=== PATIENT | female | born 1960 | race Caucasian/White ===

== ENCOUNTER 2016-10-10 20:44 | Emergency (ER) | payer BC ==
[~2016-10-10] VITALS: Ht 167.6 cm; Wt 83.0 kg
[~2016-10-10 20:44] MED LIST: ABAC1TAB3 PO; ALBUAER3 INH; ATOR10TA15 PO; BENZ1CAP34 PO; GABA400C5 PO; LEVE750T11 PO; LISI10TA3 PO; MOBI15TA PO; NYST1000 SWISH-SWAL; OMEP20CA2 PO; VALA1TAB PO
[2016-10-10 20:46] VITALS: BP 126/61; PULSE 96; RESP 15; TEMP 97.8; O2SAT 95
[2016-10-11] MEDS ORDERED: CIPR-9 PO (08:11)
[2016-11-23] MEDS ORDERED: ATOR10TA15 PO (09:21)
[2016-11-23] MEDS ORDERED: LISI10TA3 PO (09:22)
[2016-11-30] MEDS ORDERED: OXYB5TAB10 PO (13:38)
[2017-03-12] MEDS ORDERED: LISI10TA3 PO (08:23)
[2017-03-12] MEDS ORDERED: ATOR10TA15 PO (08:23)
== END 2016-10-10 21:07 | disposition left against medical advice (07) ==
LOC: NED 20:44
DX: R68.89 Other general symptoms and signs (principal)
CPT/HCPCS: 99281

== ENCOUNTER 2016-10-11 07:43 | Emergency (ER) | payer BC ==
[~2016-10-11] VITALS: Ht 167.6 cm; Wt 83.0 kg
[2016-10-11 07:45] VITALS: BP 144/89; PULSE 86; RESP 15; TEMP 97.8; O2SAT 98
--- NOTE | 2016-10-11 08:10 | PD ---
HPI Chief Complaint: Edema Time Seen by Provider: 07:54 Travel History International Travel<30 days: No Contact w/Intl Traveler<30days: No Traveled to known affect area: No History of Present Illness HPI 55-year-old female states she's been having swelling getting progressively worse to her bilateral lower extremities over the past couple of weeks. She states she feels short of breath but she's been progressively having out over the past year. She denies any chest pain or other concurrent complaints. She states she follows regularly with her HIV and primary care physician and her HIV counts are good in the 600s that she's been regularly taking her medications. She states that she's never had heart failure that she knows of or had ultrasound of her heart in the past. She states no recent travel history. She denies modifying factors other than movement. Quality is swollen. Severity is to bilateral knees. PFSH Past Medical History Narrative Medical reviewed and modified Anemia: Yes Arthritis: Yes Asthma: No Anxiety: Yes Depression: Yes Heart Rhythm Problems: No High Cholesterol: Yes Congestive Heart Failure: No COPD: No Diabetes: No Diminished Hearing: No Diverticulitis: Yes GERD: Yes Genitourinary: No Hepatitis: Yes (B AND C) Hypertension: Yes Immune Disorder: Yes (HIV +) Kidney Stones: Yes Reproductive: No Respiratory: Yes (COPD) Integumentary: Yes (GENITAL HERPES) Immunizations Current: No Seizures: Yes Sleep Apnea: No Thyroid Disease: No ?: Not Menopausal: Yes : 8 Para: 3 Miscarriage: 1 : 4 Tubal Ligation: Yes Past Surgical History Appendectomy: Yes Cholecystectomy: Yes Eye Surgery: Yes (BILAT CATARACT) Hysterectomy: Yes Social History Alcohol Use: No (HX ETOH ABUSE) Tobacco Use: Yes (<PPD) Substance Use: No (HX OF) Allergies-Medications (Allergen,Severity, Reaction): Coded Allergies: Penicillin (Verified Allergy, Severe, HIVES, 10/11/16) Reported Meds & Prescriptions Reported Meds & Active Scripts Active Reported Cipro (Ciprofloxacin HCl) 500 Mg Tab 500 Mg PO BID Gabapentin 400 Mg Cap 1 Cap PO TID Benzonatate 200 Mg Cap 1 Cap PO Q8HR PRN Omeprazole 20 Mg Cap 1 Cap PO DAILY Proair Hfa 8.5 GM Inh (Albuterol Sulfate) 90 Mcg/Act Aer 2 Puff INH Q6H PRN 108 mcg/actuation Nystatin Liq 100,000 unit/ml Susp 5 Ml SWISH-SWAL DAILY Levetiracetam ER 24 HR (Levetiracetam) 750 Mg Jojo 1 Tab PO Q12HR Mobic (Meloxicam) 15 Mg Tab 15 Mg PO DAILY Atorvastatin (Atorvastatin Calcium) 10 Mg Tab 10 Mg PO DAILY Lisinopril 10 Mg Tab 10 Mg PO DAILY Triumeq (Rosaklhq-Usmitpicjsfv-Agqgmuuccl) 600-50-300 Mg Tab 1 Tab PO DAILY Hazardous agent; use appropriate precautions for handling & disposal. Review of Systems Except as stated in HPI: all other systems reviewed are Neg Physical Exam Narrative GENERAL: Well-nourished, well-developed patient. SKIN: Warm and dry. HEAD: Normocephalic and atraumatic. EYES: No injection or drainage. ENT: No nasal drainage noted. NECK: Supple, trachea midline. CARDIOVASCULAR: Regular rate and rhythm RESPIRATORY: Breath sounds equal bilaterally. No accessory muscle use. GASTROINTESTINAL: Abdomen soft, non-tender, nondistended. EXTREMITIES: Edema noted to bilateral lower extremities with a small amount greater in the right than the left that goes up to bilateral knees without overlying cellulitic findings, Dorsalis pedis pulse strong bilaterally, sensation grossly intact, motor grossly intact NEUROLOGICAL: Awake and alert. Motor and sensory grossly within normal limits. Normal speech. Data Data Last Documented VS Vital Signs Date Time Temp Pulse Resp B/P Pulse Ox O2 Delivery O2 Flow Rate FiO2 10/11/16 08:12 93 Room Air 10/11/16 08:03 20 10/11/16 07:45 97.8 86 144/89 Orders Complete Blood Count With Diff (10/11/16 08:03) Comprehensive Metabolic Panel (10/11/16 08:03) B-Type Natriuretic Peptide (10/11/16 08:03) Act Partial Throm Time (Ptt) (10/11/16 08:03) Prothrombin Time / Inr (Pt) (10/11/16 08:03) Magnesium (Mg) (10/11/16 08:03) Ckmb (Isoenzyme) Profile (10/11/16 08:03) Troponin I (10/11/16 08:03) Iv Access Insert/Monitor (10/11/16 08:03) Electrocardiogram (10/11/16 08:03) Ecg Monitoring (10/11/16 08:03) Oximetry (10/11/16 08:03) Chest, Single Ap (10/11/16 08:03) Sodium Chloride 0.9% Flush (Ns Flush) (10/11/16 08:15) Us Leg Venous Doppler Bilat (10/11/16 ) Labs Laboratory Tests Test 10/11/16 08:10 White Blood Count 5.4 TH/MM3 Red Blood Count 4.87 MIL/MM3 Hemoglobin 14.8 GM/DL Hematocrit 42.9 % Mean Corpuscular Volume 88.2 FL Mean Corpuscular Hemoglobin 30.5 PG Mean Corpuscular Hemoglobin 34.6 % Concent Red Cell Distribution Width 13.6 % Platelet Count 224 TH/MM3 Mean Platelet Volume 8.9 FL Neutrophils (%) (Auto) 59.3 % Lymphocytes (%) (Auto) 28.4 % Monocytes (%) (Auto) 9.7 % Eosinophils (%) (Auto) 2.0 % Basophils (%) (Auto) 0.6 % Neutrophils # (Auto) 3.2 TH/MM3 Lymphocytes # (Auto) 1.5 TH/MM3 Monocytes # (Auto) 0.5 TH/MM3 Eosinophils # (Auto) 0.1 TH/MM3 Basophils # (Auto) 0.0 TH/MM3 CBC Comment DIFF FINAL Differential Comment Prothrombin Time 10.8 SEC Prothromb Time International 1.0 RATIO Ratio Activated Partial 27.1 SEC Thromboplast Time Sodium Level 140 MEQ/L Potassium Level 3.7 MEQ/L Chloride Level 108 MEQ/L Carbon Dioxide Level 20.5 MEQ/L Anion Gap 12 MEQ/L Blood Urea Nitrogen 18 MG/DL Creatinine 0.88 MG/DL Estimat Glomerular Filtration 66 ML/MIN Rate Random Glucose 103 MG/DL Calcium Level 8.6 MG/DL Magnesium Level 2.3 MG/DL Total Bilirubin 0.4 MG/DL Aspartate Amino Transf 10 U/L (AST/SGOT) Alanine Aminotransferase 21 U/L (ALT/SGPT) Alkaline Phosphatase 112 U/L Total Creatine Kinase 98 U/L Troponin I LESS THAN 0.02 NG/ML B-Type Natriuretic Peptide 6 PG/ML Total Protein 7.5 GM/DL Albumin 3.9 GM/DL MDM Medical Decision Making Medical Screen Exam Complete: Yes Emergency Medical Condition: Yes Medical Record Reviewed: Yes (past history confirmed) Interpretation(s) CBC & BMP Diagram 10/11/16 08:10 Last 24 hours Impressions Chest X-Ray 10/11/16 0803 Signed Impressions: Service Date/Time: Tuesday, October 11, 2016 08:19 - CONCLUSION: Linear opacity at the left lung base representing either subsegmental atelectasis or scar. Otherwise, no acute cardiopulmonary abnormality is identified. Jamal Blackburn MD Lower Extremity Ultrasound 10/11/16 0000 Signed Impressions: Service Date/Time: Tuesday, October 11, 2016 08:28 - CONCLUSION: No DVT is identified within either lower extremity. Jamal Blackburn MD Differential Diagnosis DVT, CHF, renal failure, venous stasis Narrative Course Will check blood work, chest x-ray, ultrasound and reevaluate ed workup no acute, Patient denies any new complaints, all questions answered. Patient knows that follow up is incumbent on them and to return to the emergency room immediately if new or worsening symptoms develop. Patient given strict return precautions, vitals reviewed and are normal, agrees to further workup as an outpatient. Diagnosis Primary Impression: Leg edema Qualified Code: R60.0 - Bilateral edema of lower extremity Patient Instructions: General Instructions Additional Instructions: elevate legs at rest, follow with primary next 1-2 days, return as needed Med/Other Pt SpecificInfo: No Change to Meds Disposition: 01 DISCHARGE HOME Condition: Stable Maria Guadalupe Martinez MD Oct 11, 2016 08:10
[2016-10-11] MEDS ORDERED: CIPR-9 PO (08:11)
[2016-10-11 08:12] VITALS: O2SAT 93
[2016-10-11] MEDS ORDERED: SODIUM CHLORIDE 0.9% FLUSH 5 ML FLUSH IVF PRN (08:15)
[2016-10-11 08:28] LABS: AUTOMATED NEUTROPHIL # 3.2 TH/MM3 (1.8-7.7); BASOPHIL % 0.6 % (0.0-2.0); EOSINOPHIL # 0.1 TH/MM3 (0-0.4); HEMATOCRIT 42.9 % (35.0-46.0); HEMO FLAGS DIFF FINAL; LYMPH % 28.4 % (9.0-44.0); LYMPHOCYTE # 1.5 TH/MM3 (1.0-4.8); MEAN CELL VOLUME 88.2 FL (80.0-100.0); MEAN CORPUSCULAR HEMOGLOBIN 30.5 PG (27.0-34.0); MEAN CORPUSCULAR HGB CONC 34.6 % (32.0-36.0); MONO % 9.7 % (0.0-8.0); NEUT % 59.3 % (16.0-70.0); PLATELET COUNT 224 TH/MM3 (150-450); RED BLOOD COUNT 4.87 MIL/MM3 (4.00-5.30); RED CELL DISTRIBUTION WIDTH 13.6 % (11.6-17.2); WHITE BLOOD COUNT 5.4 TH/MM3 (4.0-11.0)
--- NOTE | 2016-10-11 08:28 | RADRPT ---
EXAM DATE/TIME: 10/11/2016 08:19 [facility] COMPARISON: CHEST SINGLE AP, May 02, 2016, 16:36. INDICATIONS : Shortness of breath and bilateral leg swelling. MEDICAL HISTORY : Hypertension. SURGICAL HISTORY : None. ENCOUNTER: Initial ACUITY: 3 weeks PAIN SCORE: 0/10 LOCATION: Bilateral chest FINDINGS: Portable AP view of the chest demonstrates a normal-sized cardiac silhouette. No effusion, consolidat ion, or pneumothorax is present. A linear opacity at the left lung base that was partially visualized previously. The bones and soft tissues demonstrate no acute finding. CONCLUSION: Linear opacity at the left lung base representing either subsegmental atelectasis or scar. Otherwise, no acute cardiopulmonary abnormality is identified. Jamal Blackburn MD on October 11, 2016 at 8:26 Board Certified Radiologist. This report was verified electronically.
[2016-10-11 08:37] LABS: APTT (PATIENT) 27.1 SEC (24.3-30.1); PROTHROMBIN TIME - PATIENT 10.8 SEC (9.8-11.6)
[2016-10-11 08:52] LABS: ANION GAP 12 MEQ/L (5-15); AST (GOT) 10 U/L (15-37); BICARBONATE 20.5 MEQ/L (21.0-32.0); BLOOD UREA NITROGEN 18 MG/DL (7-18); CHLORIDE 108 MEQ/L (98-107); GLOMERULAR FILTRATION RATE 66 ML/MIN (>89); MAGNESIUM 2.3 MG/DL (1.5-2.5); POTASSIUM 3.7 MEQ/L (3.5-5.1); SODIUM (NA) 140 MEQ/L (136-145)
[2016-10-11 08:56] LABS: ALKALINE PHOSPHATASE 112 U/L (45-117); ALT (GPT) 21 U/L (10-53); TOTAL BILIRUBIN ADULT 0.4 MG/DL (0.2-1.0)
[2016-10-11 09:14] LABS: CREATINE KINASE 98 U/L (26-192)
--- NOTE | 2016-10-11 09:31 | RADRPT ---
EXAM DATE/TIME: 10/11/2016 08:28 [facility] COMPARISON: US LEG BILATERAL VENOUS DOPPLER, June 22, 2012, 14:02. INDICATIONS : Swelling in bilateral lower extremities. MEDICAL HISTORY : Seizures. Hypercholesterolemia. Hypertension. Neuropathy, bilateral legs. GERD. Diverticulitis. Stage III renal disease. Hepatitis C & B. ETOH abuse. HIV. Genital herpes. SURGICAL HISTORY : Appendectomy.Tubal ligation. Hysterectomy.Bilateral cataract surgery. ENCOUNTER: Initial ACUITY: 3 weeks PAIN SCORE: 1/10 LOCATION: Bilateral legs. TECHNIQUE: Venous ultrasound of the left and right leg was performed from the inguinal ligament to the proximal calf. Real-time, color Doppler and spectral tracing, compression and augmentation techniques were us ed. FINDINGS: RIGHT LEG: There is normal compressibility of the deep venous system from the inguinal region to the proximal ca lf. No echogenic clot is seen in the lumen of the common femoral, femoral, popliteal, and posterior tibial veins. There is a normal response of the venous system to proximal and distal augmentation an d respiration. LEFT LEG: There is normal compressibility of the deep venous system from the inguinal region to the proximal ca lf. No echogenic clot is seen in the lumen of the common femoral, femoral, popliteal, and posterior tibial veins. There is a normal response of the venous system to proximal and distal augmentation an d respiration. CONCLUSION: No DVT is identified within either lower extremity. Jamal Blackburn MD on October 11, 2016 at 9:29 Board Certified Radiologist. This report was verified electronically.
[2016-10-11 10:07] VITALS: BP 112/60
--- NOTE | 2016-10-11 23:13 | EKG ---
Date Performed: 10/11/2016 Time Performed: 08:12:29 PTAGE: 55 years EKG: SINUS BRADYCARDIA POSSIBLE RIGHT VENTRICULAR CONDUCTION DELAY BORDERLINE ECG PREVIOUS TRACING : 04/10/2015 07.56 Compared to prior tracing no significant change DOCTOR: Mitul Vasquez Interpretating Date/Time 10/11/2016 23:11:34
[2016-11-23] MEDS ORDERED: ATOR10TA15 PO (09:21)
[2016-11-23] MEDS ORDERED: LISI10TA3 PO (09:22)
[2016-11-30] MEDS ORDERED: OXYB5TAB10 PO (13:38)
[2017-03-12] MEDS ORDERED: ATOR10TA15 PO (08:23)
[2017-03-12] MEDS ORDERED: LISI10TA3 PO (08:23)
== END 2016-10-11 10:20 | disposition home or self-care (01) ==
LOC: NEPC 07:43
DX: R60.0 Localized edema (principal); B20 Human immunodeficiency virus [HIV] disease; I10 Essential (primary) hypertension; F17.200 Nicotine dependence, unspecified, uncomplicated; Z79.899 Other long term (current) drug therapy
CPT/HCPCS: 71010; 80053; 82550; 83735; 83880; 84484; 85025; 85610; 85730; 93005; 93970

== ENCOUNTER 2016-11-12 12:12 | Emergency (ER) | payer BC ==
[~2016-11-12] VITALS: Ht 167.6 cm; Wt 85.0 kg
[~2016-11-12 12:12] MED LIST changes: -GABA400C5 PO; -VALA1TAB PO
[2016-11-12 12:13] VITALS: BP 123/78; PULSE 101; RESP 22; TEMP 98.2; O2SAT 98
[2016-11-12] MEDS ORDERED: DEXAMETHASONE SOD PHOS 4 MG/ML VIAL IM ONE (12:45)
[2016-11-12] MEDS ORDERED: CYCLOBENZAPRINE HCL 10 MG TAB PO ONE (12:45)
--- NOTE | 2016-11-12 12:45 | PD ---
HPI Chief Complaint: Back/ Neck Pain or Injury Time Seen by Provider: 12:42 Travel History International Travel<30 days: No Contact w/Intl Traveler<30days: No Traveled to known affect area: No History of Present Illness HPI Patient comes in complaining of low back pain that she awoke with this morning. Patient denies any fevers, trauma, numbness or tingling anywhere, loss change in bowel or bladder, or IV drug use. Patient has been using [id number] medication with minimal to no improvement in her symptoms. Pain is worse with certain movement. Pain is sharp stabbing like in nature without radiation. PFSH Past Medical History Anemia: Yes Arthritis: Yes Asthma: No Anxiety: Yes Depression: Yes Heart Rhythm Problems: No High Cholesterol: Yes Congestive Heart Failure: No COPD: No Diabetes: No Diminished Hearing: No Diverticulitis: Yes GERD: Yes Genitourinary: No Hepatitis: Yes (B AND C) Hypertension: Yes Immune Disorder: Yes (HIV +) Kidney Stones: Yes Reproductive: No Respiratory: Yes Integumentary: Yes (GENITAL HERPES) Immunizations Current: No Seizures: Yes Sleep Apnea: No Thyroid Disease: No ?: Not Menopausal: Yes : 8 Para: 3 Miscarriage: 1 : 4 Tubal Ligation: Yes Past Surgical History Appendectomy: Yes Cholecystectomy: Yes Eye Surgery: Yes (BILAT CATARACT) Hysterectomy: Yes Social History Alcohol Use: No (HX ETOH ABUSE) Tobacco Use: Yes (3-4 CIG/DAY) Substance Use: No (HX OF) Allergies-Medications (Allergen,Severity, Reaction): Coded Allergies: Penicillin (Verified Allergy, Severe, HIVES, 11/12/16) Reported Meds & Prescriptions Reported Meds & Active Scripts Active Ultram (Tramadol HCl) 50 Mg Tab 50 Mg PO Q8H PRN Medrol Dosepak (Methylprednisolone) 4 Mg Dspk 4 Mg PO DIRECTED Per Pharmacist direction Robaxin (Methocarbamol) 750 Mg Tab 750 Mg PO Q8HR PRN Reported Benzonatate 200 Mg Cap 1 Cap PO Q8HR PRN Omeprazole 20 Mg Cap 1 Cap PO DAILY Proair Hfa 8.5 GM Inh (Albuterol Sulfate) 90 Mcg/Act Aer 2 Puff INH Q6H PRN 108 mcg/actuation Nystatin Liq 100,000 unit/ml Susp 5 Ml SWISH-SWAL DAILY Levetiracetam ER 24 HR (Levetiracetam) 750 Mg Jojo 1 Tab PO Q12HR Mobic (Meloxicam) 15 Mg Tab 15 Mg PO DAILY Atorvastatin (Atorvastatin Calcium) 10 Mg Tab 10 Mg PO DAILY Lisinopril 10 Mg Tab 10 Mg PO DAILY Triumeq (Ogmgldwh-Syhaifnkdaek-Krmqhxaiwb) 600-50-300 Mg Tab 1 Tab PO DAILY Hazardous agent; use appropriate precautions for handling & disposal. Review of Systems Except as stated in HPI: all other systems reviewed are Neg Physical Exam Narrative GENERAL: Well-developed, overly nourished, in no acute distress, and non-ill appearing. SKIN: Warm and dry. HEAD: Atraumatic. Normocephalic. EYES: Pupils equal and round. EOMI. No scleral icterus. No injection or drainage. ENT: No nasal bleeding or discharge. Mucous membranes pink and moist. NECK: Trachea midline. Supple. No nuclear rigidity. CARDIOVASCULAR: No pedal edema. RESPIRATORY: No accessory muscle use. No respiratory distress. MUSCULOSKELETAL: No obvious deformities. No clubbing. No cyanosis. No edema. Full range of motion. No tenderness or crepitus or midline lumbar spine. Patient reports tenderness primarily in the right SI joint. Straight leg test positive on the right. Normal gait. NEUROLOGICAL: Awake and alert. No obvious cranial nerve deficits. Motor grossly within normal limits. Normal speech. PSYCHIATRIC: Appropriate mood and affect; insight and judgment normal. Data Data Last Documented VS Vital Signs Date Time Temp Pulse Resp B/P Pulse Ox O2 Delivery O2 Flow Rate FiO2 11/12/16 12:13 98.2 101 22 123/78 98 Orders Cyclobenzaprine (Flexeril) (11/12/16 12:45) Dexamethasone Inj (Decadron Inj) (11/12/16 12:45) MDM Medical Decision Making Medical Screen Exam Complete: Yes Emergency Medical Condition: Yes Differential Diagnosis Fracture, strain, sciatica, other Narrative Course The patient presented complaining of back pain. There was no history of recent fall or trauma. There was no evidence to support genitourinary etiology. There is also no evidence to suggest vascular pathology such as AAA dissection. No fevers or other evidence to suspect infectious processes, abscess, osteomyelitis etc. The patients neurological exam is normal with normal motor and sensory. There is no saddle paresthesias reported and no bowel or bladder incontinence or retention. I suspect the pain is mechanical in nature. Clinical suspicion, plan of care and management was discussed with the patient. The patient was instructed to follow up with their health care provider. The patient was also instructed to return if the pain worsened, changed, or developed weakness or bowel or bladder trouble. The patient agreed with plan. Patient in no obvious distress upon re-evaluation. Patient was asked if they wanted to speak to my attending, which the patient did not wish to do at this time. Any questions/concerns in reference to patient diagnosis/condition discussed and clarified prior to patient's discharge. Reinforced sheer importance of close follow up with patient's primary physician or primary care clinic. Instructed patient to return to ED immediately, if symptoms return/ worsen. Pt showed understanding of above instructions. Further instructions and recommendations were detailed in discharge paperwork. Pt ambulated without difficulty out of ED at discharge. Diagnosis Primary Impression: Low back pain Qualified Code: M54.5 - Right low back pain, unspecified chronicity, with sciatica presence unspecified Patient Instructions: Back Pain (ED), General Instructions Additional Instructions: Follow-up with your primary care physician in 3-5 days for evaluation. Take all medication as prescribed. Return to the emergency department if symptoms get worse. Med/Other Pt SpecificInfo: Prescription(s) given Scripts Tramadol (Ultram)50 Mg Tab50 Mg PO Q8H PRN (PAIN) #7 TAB Ref 0 Prov:Jazmin Keith MD 11/12/16 Methylprednisolone Dosepak (Medrol Dosepak)4 Mg Dspk4 Mg PO DIRECTED #1 DSPK Ref 0 Per Pharmacist direction Prov:Jazmin Keith MD 11/12/16 Methocarbamol (Robaxin)750 Mg Tgz440 Mg PO Q8HR PRN (MUSCLE PAIN) #12 TAB Ref 0 Prov:Jazmin Keith MD 11/12/16 Disposition: 01 DISCHARGE HOME Condition: Stable Julian Philip Nov 12, 2016 12:45
[2016-11-12] MEDS ORDERED: MEDR4PAK PO (12:46)
[2016-11-12] MEDS ORDERED: ULTR50TA5 PO (12:46)
[2016-11-12] MEDS ORDERED: ROBA750T PO (12:46)
[2016-11-23] MEDS ORDERED: ATOR10TA15 PO (09:21)
[2016-11-23] MEDS ORDERED: LISI10TA3 PO (09:22)
[2016-11-30] MEDS ORDERED: OXYB5TAB10 PO (13:38)
[2017-03-12] MEDS ORDERED: ATOR10TA15 PO (08:23)
[2017-03-12] MEDS ORDERED: LISI10TA3 PO (08:23)
[2017-03-18] MEDS ORDERED: OXYB5TAB10 PO (14:36)
== END 2016-11-12 13:25 | disposition home or self-care (01) ==
LOC: NEPB 12:12
DX: M54.5 Low back pain (principal); I10 Essential (primary) hypertension; E78.00 Pure hypercholesterolemia, unspecified; Z21 Asymptomatic human immunodeficiency virus [HIV] infection status; Z72.0 Tobacco use; Z86.2 Personal history of diseases of the blood and blood-forming organs and certain disorders involving the immune mechanism; Z87.39 Personal history of other diseases of the musculoskeletal system and connective tissue; Z86.59 Personal history of other mental and behavioral disorders; Z87.19 Personal history of other diseases of the digestive system; Z86.19 Personal history of other infectious and parasitic diseases; Z87.448 Personal history of other diseases of urinary system; Z87.09 Personal history of other diseases of the respiratory system; Z87.2 Personal history of diseases of the skin and subcutaneous tissue; Z86.69 Personal history of other diseases of the nervous system and sense organs
CPT/HCPCS: 96372; 99283; J1100

== ENCOUNTER 2016-12-04 14:57 | Emergency (ER) | payer BC ==
[~2016-12-04] VITALS: Ht 167.6 cm; Wt 80.0 kg
[~2016-12-04 14:57] MED LIST changes: -ABAC1TAB3 PO; +OXYB5TAB10 PO; +ROBA750T PO
[2016-12-04 15:00] VITALS: BP 145/80; PULSE 102; RESP 17; TEMP 97.9; O2SAT 98
--- NOTE | 2016-12-04 16:04 | PD ---
HPI Chief Complaint: Fall Time Seen by Provider: 16:04 Travel History International Travel<30 days: No Contact w/Intl Traveler<30days: No Traveled to known affect area: No History of Present Illness HPI 56-year-old female with a history of hypertension, hyperlipidemia, HIV on antiretroviral therapy, seizure disorder presents to the emergency department for evaluation of left ankle and foot pain status post fall that occurred yesterday. The patient states that she was walking in her backyard yesterday and is unsure exactly how she fell. States that she had a "fuzzy feeling" in her head that she sometimes gets before having a seizure and then the next thing she knew she was falling onto the ground and caught herself but did twist her left foot and ankle. Denies head trauma. The patient is complaining of pain in the lateral aspect of the left foot and ankle aggravated with movement and weightbearing. States that she thinks she had a small seizure yesterday. States she has not taken her Keppra in over a year because she has not been able to follow up with her neurologist. She denies any preceding symptoms of chest pain or shortness of breath. She denies any lightheadedness, dizziness, nausea, vomiting, vision changes, numbness or tingling, weakness. Denies any anticoagulation. No other complaints. PFSH Past Medical History Anemia: Yes Arthritis: Yes Asthma: No Anxiety: Yes Depression: Yes Heart Rhythm Problems: No High Cholesterol: Yes Congestive Heart Failure: No COPD: No Diabetes: No Diminished Hearing: No Diverticulitis: Yes GERD: Yes Genitourinary: No Hepatitis: Yes (B AND C) Hypertension: Yes Immune Disorder: Yes (HIV +) Kidney Stones: Yes Reproductive: No Respiratory: Yes Integumentary: Yes (GENITAL HERPES) Immunizations Current: No Seizures: Yes Sleep Apnea: No Thyroid Disease: No Tetanus Vaccination: < 5 Years Menopausal: Yes : 8 Para: 3 Miscarriage: 1 : 4 Tubal Ligation: Yes Past Surgical History Appendectomy: Yes Cholecystectomy: Yes Eye Surgery: Yes (BILAT CATARACT) Hysterectomy: Yes Other Surgery: Yes (appendicitis/gal bladder / cartaract/hysterectomty) Social History Alcohol Use: No (HX ETOH ABUSE) Tobacco Use: Yes (3-4 CIG/DAY) Substance Use: No (HX OF) Allergies-Medications (Allergen,Severity, Reaction): Coded Allergies: Penicillin (Verified Allergy, Severe, HIVES, 12/04/16) Reported Meds & Prescriptions Reported Meds & Active Scripts Active Ditropan (Oxybutynin Chloride) 5 Mg Tab 5 Mg PO Q12HR Lisinopril 10 Mg Tab 10 Mg PO DAILY Atorvastatin (Atorvastatin Calcium) 10 Mg Tab 10 Mg PO DAILY Robaxin (Methocarbamol) 750 Mg Tab 750 Mg PO Q8HR PRN Reported Benzonatate 200 Mg Cap 1 Cap PO Q8HR PRN Omeprazole 20 Mg Cap 1 Cap PO DAILY Proair Hfa 8.5 GM Inh (Albuterol Sulfate) 90 Mcg/Act Aer 2 Puff INH Q6H PRN 108 mcg/actuation Nystatin Liq 100,000 unit/ml Susp 5 Ml SWISH-SWAL DAILY Levetiracetam ER 24 HR (Levetiracetam) 750 Mg Jojo 1 Tab PO Q12HR Mobic (Meloxicam) 15 Mg Tab 15 Mg PO DAILY Review of Systems Except as stated in HPI: all other systems reviewed are Neg Physical Exam Narrative GENERAL: Well-nourished and well-developed pleasant patient in no acute distress who is nontoxic appearing. SKIN: Warm and dry. HEAD: Normocephalic and atraumatic. EYES: No injection, drainage, or hyphema noted. PERRLA. EOMI. ENT: No nasal drainage noted. Oropharynx is clear. NECK: Supple and the trachea is midline. CARDIOVASCULAR: Regular rate and rhythm. RESPIRATORY: Breath sounds are equal bilaterally with no accessory muscle use, wheezing, rhonchi, or crackles. GASTROINTESTINAL: Abdomen is soft, non-tender, and nondistended. MUSCULOSKELETAL: The left ankle and foot is tender over the lateral aspect but the skin is intact and there is no ligamentous instability. There is no deformity. The foot and toes are warm and well-perfused. Sensation to pain and light touch is intact. There is pitting edema to bilateral feet, per patient this is chronic. No obvious deformities, cyanosis, or ecchymosis is present throughout the upper and lower extremities. Patient has full range of motion without any signs of neurovascular compromise. Strength 5/5 upper and lower extremities equal bilaterally. NEUROLOGICAL: Awake, alert, and oriented. Normal speech and gait. Cranial nerves are grossly intact. Data Data Last Documented VS Vital Signs Date Time Temp Pulse Resp B/P Pulse Ox O2 Delivery O2 Flow Rate FiO2 12/04/16 17:12 16 94 Room Air 12/04/16 15:00 97.9 102 145/80 Orders Ankle, Complete ([id number]) (12/04/16 16:01) Foot, Complete ([id number]) (12/04/16 16:01) Electrocardiogram (12/04/16 16:01) Basic Metabolic Panel (Bmp) (12/04/16 16:01) Complete Blood Count With Diff (12/04/16 16:01) Troponin I (12/04/16 16:01) Ecg Monitoring (12/04/16 16:01) Iv Access Insert/Monitor (12/04/16 16:01) Oximetry (12/04/16 16:01) Splint Or Brace Apply/Monitor (12/04/16 17:01) Labs Laboratory Tests Test 12/04/16 16:50 White Blood Count 5.9 TH/MM3 Red Blood Count 5.05 MIL/MM3 Hemoglobin 15.4 GM/DL Hematocrit 45.2 % Mean Corpuscular Volume 89.5 FL Mean Corpuscular Hemoglobin 30.6 PG Mean Corpuscular Hemoglobin 34.2 % Concent Red Cell Distribution Width 13.4 % Platelet Count 232 TH/MM3 Mean Platelet Volume 8.8 FL Neutrophils (%) (Auto) 57.1 % Lymphocytes (%) (Auto) 28.9 % Monocytes (%) (Auto) 11.5 % Eosinophils (%) (Auto) 2.0 % Basophils (%) (Auto) 0.5 % Neutrophils # (Auto) 3.4 TH/MM3 Lymphocytes # (Auto) 1.7 TH/MM3 Monocytes # (Auto) 0.7 TH/MM3 Eosinophils # (Auto) 0.1 TH/MM3 Basophils # (Auto) 0.0 TH/MM3 CBC Comment DIFF FINAL Differential Comment Sodium Level 140 MEQ/L Potassium Level 3.9 MEQ/L Chloride Level 106 MEQ/L Carbon Dioxide Level 25.9 MEQ/L Anion Gap 8 MEQ/L Blood Urea Nitrogen 18 MG/DL Creatinine 1.08 MG/DL Estimat Glomerular Filtration 52 ML/MIN Rate Random Glucose 92 MG/DL Calcium Level 9.0 MG/DL Troponin I LESS THAN 0.02 NG/ML MDM Medical Decision Making Medical Screen Exam Complete: Yes Emergency Medical Condition: Yes Differential Diagnosis Left ankle sprain versus contusion versus fracture versus seizure versus syncope Narrative Course 56-year-old female presents to the emergency department for evaluation of fall yesterday injuring her left ankle and foot. Patient is afebrile. She is a little tachycardic with a heart rate of 102 bpm. Otherwise vital signs are within normal limits. Physical examination reveals some swelling and pain to the lateral aspect of the left foot and ankle. X-ray imaging has been ordered and is pending. She reports history of seizure disorder and has been off of her medication for about 1 year. Reporting that she think she had a seizure yesterday which is why she fell. We'll do basic blood work. EKG shows sinus rhythm with no acute ST elevations or depressions. X-ray of the left foot is negative for any acute abnormalities. X-ray of the left ankle is negative for any acute abnormalities. CBC is unremarkable. BMP is unremarkable. Patient remained stable and without complaint while here in the emergency department. Her left ankle is placed in an Jorge wrap. I did offer her crutches however she reports that she is able to ambulate on it and does not need crutches for ambulation. We'll discharge the patient with naproxen. She may have had a seizure causing her fall yesterday but she is not taking her seizure medication because she has not followed up with her neurologist in a while. Advised her to follow-up with her PCP and her neurologist. Patient verbalizes understanding and agreement with treatment plan. I discussed the case with my attending physician Dr. Keith who is aware of the patients history, physical examination findings, and treatment plan. Diagnosis Primary Impression: Left ankle sprain Qualified Code: S93.402A - Sprain of left ankle, unspecified ligament, initial encounter Additional Impression: Seizure disorder Referrals: Primary Care Physician Patient Instructions: Ankle Sprain (ED), General Instructions Additional Instructions: Jorge wrap. Elevate left ankle. Apply ice for 20 minutes on, 20 minutes off. Take medication as prescribed with food and a full glass of water. Follow-up with your Primary Care Physician. Return to the ED for any acute worsening of symptoms. Med/Other Pt SpecificInfo: Prescription(s) given Disposition: 01 DISCHARGE HOME Condition: Stable Sandra Mai Dec 04, 2016 16:04
--- NOTE | 2016-12-04 16:25 | RADRPT ---
EXAM DATE/TIME: 12/04/2016 16:15 [facility] COMPARISON: No previous studies available for comparison. INDICATIONS : Patient fell. MEDICAL HISTORY : None. SURGICAL HISTORY : None. ENCOUNTER: Initial ACUITY: 2 days PAIN SCORE: 7/10 LOCATION: Left lateral Ankle FINDINGS: Three view exam was performed of the left ankle. The bony structures are in normal alignment. No ev idence of fracture or dislocation. There is soft tissue swelling throughout the ankle., CONCLUSION: Soft tissue swelling. A bony injury is not seen. Jamal Lacey MD on December 04, 2016 at 16:22 Board Certified Radiologist. This report was verified electronically.
--- NOTE | 2016-12-04 16:25 | RADRPT ---
EXAM DATE/TIME: 12/04/2016 16:11 [facility] COMPARISON: No previous studies available for comparison. INDICATIONS : Patient fell MEDICAL HISTORY : None. SURGICAL HISTORY : None. ENCOUNTER: Initial ACUITY: 2 days PAIN SCORE: 7/10 LOCATION: Left lateral Foot FINDINGS: Three view examination of the left foot demonstrates no soft tissue swelling, dislocation, or fractur e. The tarsal bones appear intact. The interphalangeal and metatarsophalangeal joints are intact. The calcaneus is intact. Bony mineralization is normal. CONCLUSION: No acute disease. Jamal Lacey MD on December 04, 2016 at 16:23 Board Certified Radiologist. This report was verified electronically.
[2016-12-04 17:00] VITALS: BP 113/66; PULSE 78; RESP 16; O2SAT 97
[2016-12-04 17:04] LABS: AUTOMATED NEUTROPHIL # 3.4 TH/MM3 (1.8-7.7); BASOPHIL % 0.5 % (0.0-2.0); EOSINOPHIL # 0.1 TH/MM3 (0-0.4); HEMATOCRIT 45.2 % (35.0-46.0); HEMO FLAGS DIFF FINAL; LYMPH % 28.9 % (9.0-44.0); LYMPHOCYTE # 1.7 TH/MM3 (1.0-4.8); MEAN CELL VOLUME 89.5 FL (80.0-100.0); MEAN CORPUSCULAR HEMOGLOBIN 30.6 PG (27.0-34.0); MEAN CORPUSCULAR HGB CONC 34.2 % (32.0-36.0); MONO % 11.5 % (0.0-8.0); NEUT % 57.1 % (16.0-70.0); PLATELET COUNT 232 TH/MM3 (150-450); RED BLOOD COUNT 5.05 MIL/MM3 (4.00-5.30); RED CELL DISTRIBUTION WIDTH 13.4 % (11.6-17.2); WHITE BLOOD COUNT 5.9 TH/MM3 (4.0-11.0)
[2016-12-04 17:12] VITALS: RESP 16; O2SAT 94
[2016-12-04 17:33] LABS: ANION GAP 8 MEQ/L (5-15); BICARBONATE 25.9 MEQ/L (21.0-32.0); BLOOD UREA NITROGEN 18 MG/DL (7-18); CHLORIDE 106 MEQ/L (98-107); GLOMERULAR FILTRATION RATE 52 ML/MIN (>89); POTASSIUM 3.9 MEQ/L (3.5-5.1); SODIUM (NA) 140 MEQ/L (136-145)
[2016-12-04 18:12] VITALS: BP 109/57
--- NOTE | 2016-12-04 21:53 | EKG ---
Date Performed: 12/04/2016 Time Performed: 14:31:19 PTAGE: 56 years EKG: Sinus rhythm POSSIBLE LEFT ATRIAL ENLARGEMENT INDETERMINATE AXIS POSSIBLE RIGHT VENTRICULAR CONDUCTION DELAY POSS IBLE INFERIOR MYOCARDIAL INFARCTION BORDERLINE ECG NO SIGNIFICANT CHANGE FROM PRIOR ELECTROCARDIOGRAM . PREVIOUS TRACING : 10/11/2016 08.12 DOCTOR: Phil Lo Interpretating Date/Time 12/04/2016 21:51:56
[2017-03-12] MEDS ORDERED: ATOR10TA15 PO (08:23)
[2017-03-12] MEDS ORDERED: LISI10TA3 PO (08:23)
[2017-03-18] MEDS ORDERED: OXYB5TAB10 PO (14:36)
== END 2016-12-04 18:20 | disposition home or self-care (01) ==
LOC: NEPC 14:57
DX: S93.402A Sprain of unspecified ligament of left ankle, initial encounter (principal); G40.909 Epilepsy, unspecified, not intractable, without status epilepticus; D64.9 Anemia, unspecified; E78.00 Pure hypercholesterolemia, unspecified; I10 Essential (primary) hypertension; Z72.0 Tobacco use; F10.10 Alcohol abuse, uncomplicated; R94.31 Abnormal electrocardiogram [ECG] [EKG]; W01.0XXA Fall on same level from slipping, tripping and stumbling without subsequent striking against object, initial encounter; Y93.01 Activity, walking, marching and hiking; Y92.007 Garden or yard of unspecified non-institutional (private) residence as the place of occurrence of the external cause
CPT/HCPCS: 73610; 73630; 80048; 84484; 85025; 93005

== ENCOUNTER 2016-12-28 07:56 | Emergency (ER) | payer BC ==
[~2016-12-28] VITALS: Ht 167.6 cm; Wt 83.1 kg
[2016-12-28 07:59] VITALS: BP 152/82; PULSE 86; RESP 18; TEMP 97.7; O2SAT 98
[2016-12-28 08:12] VITALS: BP 123/77; PULSE 82; RESP 22; TEMP 97.8; O2SAT 98
--- NOTE | 2016-12-28 08:18 | PD ---
HPI Chief Complaint: Flank/Kidney Pain Time Seen by Provider: 08:07 Travel History International Travel<30 days: No Contact w/Intl Traveler<30days: No Traveled to known affect area: No History of Present Illness HPI 56-year-old female complains of low back pain. Patient states that the pain started several days ago. Patient states that the pain is aching pain and sharp pain localized to lower back area. Patient denies any pain radiation. Patient denies any recent injury. Patient denies any focal weakness and numbness of extremity. Patient denies any fever. Patient denies any dysuria or frequency. Patient denies any vaginal discharge or bleeding. Patient status post cholecystectomy, appendectomy, isthmectomy. PFSH Past Medical History Anemia: Yes Arthritis: Yes Asthma: No Anxiety: Yes Depression: Yes Heart Rhythm Problems: No High Cholesterol: Yes Congestive Heart Failure: No COPD: No Diabetes: No Diminished Hearing: No Diverticulitis: Yes GERD: Yes Genitourinary: No Hepatitis: Yes (B AND C) Hypertension: Yes Immune Disorder: Yes (HIV +) Kidney Stones: Yes Reproductive: No Respiratory: Yes Integumentary: Yes (GENITAL HERPES) Immunizations Current: No Seizures: Yes Sleep Apnea: No Thyroid Disease: No Menopausal: Yes : 8 Para: 3 Miscarriage: 1 : 4 Tubal Ligation: Yes Past Surgical History Appendectomy: Yes Cholecystectomy: Yes Eye Surgery: Yes (BILAT CATARACT) Hysterectomy: Yes Other Surgery: Yes (appendicitis/gal bladder / cartaract/hysterectomty) Social History Alcohol Use: No (HX ETOH ABUSE) Tobacco Use: Yes (3-4 CIG/DAY) Substance Use: No (HX OF) Allergies-Medications (Allergen,Severity, Reaction): Coded Allergies: Penicillin (Verified Allergy, Severe, HIVES, 12/04/16) Reported Meds & Prescriptions Reported Meds & Active Scripts Active Ditropan (Oxybutynin Chloride) 5 Mg Tab 5 Mg PO Q12HR Lisinopril 10 Mg Tab 10 Mg PO DAILY Atorvastatin (Atorvastatin Calcium) 10 Mg Tab 10 Mg PO DAILY Robaxin (Methocarbamol) 750 Mg Tab 750 Mg PO Q8HR PRN Reported Benzonatate 200 Mg Cap 1 Cap PO Q8HR PRN Omeprazole 20 Mg Cap 1 Cap PO DAILY Proair Hfa 8.5 GM Inh (Albuterol Sulfate) 90 Mcg/Act Aer 2 Puff INH Q6H PRN 108 mcg/actuation Nystatin Liq 100,000 unit/ml Susp 5 Ml SWISH-SWAL DAILY Levetiracetam ER 24 HR (Levetiracetam) 750 Mg Jojo 1 Tab PO Q12HR Mobic (Meloxicam) 15 Mg Tab 15 Mg PO DAILY Review of Systems General / Constitutional: No: Fever Eyes: No: Visual changes HENT: No: Headaches Cardiovascular: No: Chest Pain or Discomfort Respiratory: No: Shortness of Breath Gastrointestinal: No: Abdominal Pain Genitourinary: No: Dysuria Musculoskeletal: No: Pain Skin: No Rash Neurologic: No: Weakness Psychiatric: No: Depression Endocrine: No: Polydipsia Hematologic/Lymphatic: No: Easy Bruising Physical Exam Narrative GENERAL: Well-nourished, well-developed patient. SKIN: Focused skin assessment warm/dry. HEAD: Normocephalic. EYES: No scleral icterus. No injection or drainage. NECK: Supple, trachea midline. No JVD or lymphadenopathy. CARDIOVASCULAR: Regular rate and rhythm without murmurs, gallops, or rubs. RESPIRATORY: Breath sounds equal bilaterally. No accessory muscle use. GASTROINTESTINAL: Abdomen soft, non-tender, nondistended. MUSCULOSKELETAL: No cyanosis, or edema. BACK: Patient has moderate tenderness on palpation low back area, without obvious deformity. No CVA tenderness. Negative straight leg raising. Neurologic exam normal. Data Data Last Documented VS Vital Signs Date Time Temp Pulse Resp B/P Pulse Ox O2 Delivery O2 Flow Rate FiO2 12/28/16 08:28 82 12/28/16 08:12 97.8 22 123/77 98 Orders Urinalysis - C+S If Indicated (12/28/16 08:14) Spine, Lumbar - Ltd (Ap & Lat) (12/28/16 08:14) Labs Laboratory Tests Test 12/28/16 08:15 Urine Color YELLOW Urine Turbidity CLEAR Urine pH 6.5 Urine Specific [place] 1.015 Urine Protein NEG mg/dL Urine Glucose (UA) NEG mg/dL Urine Ketones NEG mg/dL Urine Occult Blood NEG Urine Nitrite NEG Urine Bilirubin NEG Urine Urobilinogen LESS THAN 2.0 MG/DL Urine Leukocyte Esterase NEG Urine RBC LESS THAN 1 /hpf Urine WBC LESS THAN 1 /hpf Urine Squamous Epithelial <1 /hpf Cells Urine Mucus FEW /lpf Microscopic Urinalysis Comment CULT NOT INDICATED MDM Medical Decision Making Medical Screen Exam Complete: Yes Emergency Medical Condition: Yes Interpretation(s) Last Impressions Lumbar Spine X-Ray 12/28/16 0814 Signed Impressions: Service Date/Time: Wednesday, December 28, 2016 08:33 - CONCLUSION: Mild degenerative changes. No acute bony findings Jamal Navarrete MD UA is negative. Differential Diagnosis Differential diagnosis including musculoskeletal, UTI, pyelonephritis, nephrolithiasis. Narrative Course 56-year-old female with low back pain. Toradol 60 mg IM. Norflex 60 mg IM. Diagnosis Primary Impression: Lumbar strain Qualified Code: S39.012A - Lumbar strain, initial encounter Patient Instructions: General Instructions Additional Instructions: Take medications as needed for pain. Follow-up with orthopedist and personal physician. Return if worse. Med/Other Pt SpecificInfo: Prescription(s) given Scripts Acetaminophen-Codeine (Tylenol-Codeine #3)300-30 mg Tab1-2 Tab PO Q6H PRN (PAIN ) #20 TAB Ref 0 Prov:Reji Mendez MD 12/28/16 Cyclobenzaprine (Flexeril)10 Mg Tab10 Mg PO TID #60 TAB Ref 0 Prov:Reji Mendez MD 12/28/16 Meloxicam (Mobic)15 Mg Tab15 Mg PO DAILY #20 TAB Prov:Reji Mendez MD 12/28/16 Disposition: 01 DISCHARGE HOME Condition: Stable Reji Mendez MD Dec 28, 2016 08:18
[2016-12-28 08:25] LABS: BLOOD, URINE NEG (NEG); COMMENT (UR) CULT NOT INDICATED; CULTURE IF INDICATED CULT NOT INDICATED; GLUCOSE,URINE NEG (NEG); KETONE, URINE NEG (NEG); MUCUS URINE FEW /lpf (OCC); NITRITE,URINE NEG (NEG); PH, URINE 6.5 (5.0-8.5); SQUAMOUS EPITHELIAL CELL URINE <1 /hpf (0-5); URINE COLOR YELLOW (YELLW/STRAW)
--- NOTE | 2016-12-28 08:54 | RADRPT ---
EXAM DATE/TIME: 12/28/2016 08:33 [facility] COMPARISON: CHEST SINGLE AP, October 11, 2016, 8:19. INDICATIONS : Lower back pain, no trauma. MEDICAL HISTORY : Hypertension. HIV. Smoker. SURGICAL HISTORY : Appendectomy. Hysterectomy. ENCOUNTER: Initial ACUITY: 3 days PAIN SCORE: 8/10 LOCATION: Bilateral lower back, radiates out FINDINGS: Alignment is normal. There is no evidence of fracture or destructive change. There's mild disc space narrowing most notably at lumbosacral junction. Tiny endplate osteophytes present at several levels. CONCLUSION: Mild degenerative changes. No acute bony findings Jamal Navarrete MD on December 28, 2016 at 8:50 Board Certified Radiologist. This report was verified electronically.
[2016-12-28] MEDS ORDERED: TYLETAB34 PO (09:38)
[2016-12-28] MEDS ORDERED: MOBI15TA PO (09:38)
[2016-12-28] MEDS ORDERED: CYCL1TAB29 PO (09:38)
[2016-12-28] MEDS ORDERED: ORPHENADRINE INJ 60 MG/2 ML AMP IM ONE (09:45)
[2016-12-28] MEDS ORDERED: KETOROLAC TROMETHAMINE 60 MG/2 ML (IM) VIAL IM ONE (09:45)
[2017-03-12] MEDS ORDERED: LISI10TA3 PO (08:23)
[2017-03-12] MEDS ORDERED: ATOR10TA15 PO (08:23)
[2017-03-18] MEDS ORDERED: OXYB5TAB10 PO (14:36)
== END 2016-12-28 10:47 | disposition home or self-care (01) ==
LOC: NEPC 07:56
DX: S39.012A Strain of muscle, fascia and tendon of lower back, initial encounter (principal); E78.00 Pure hypercholesterolemia, unspecified; I10 Essential (primary) hypertension; K21.9 Gastro-esophageal reflux disease without esophagitis; F17.210 Nicotine dependence, cigarettes, uncomplicated; Z21 Asymptomatic human immunodeficiency virus [HIV] infection status; Z87.442 Personal history of urinary calculi
CPT/HCPCS: 72100; 81001; 96372; 99283; J1885; J2360

== ENCOUNTER → 2017-01-06 | Outpatient (CLI) | payer BC ==
[~2017-01-06] MED LIST changes: +BALANCED SALT SOLN OPHT IRRIG 15 ML BTL ONE; +CYCL1TAB29 PO; +HYPROMELLOSE 0.3 % OPTH GEL 10 GM (0.34 FL OZ) TUBE ONE; +PHENYLEPHRINE HCL 2.5% OPTH SOLN 2 ML BTL ONE; +PRED20 PO; +PROPARACAINE HCL 0.5% OPHT SOLN 15 ML BTL ONE; +TROPICAMIDE 1% OPHT SOLN 15 ML BTL ONE; +TYLETAB34 PO
== END ==
LOC: PHSDC 08:39
PROVIDERS: ATTEND Ophthalmology
DX: H26.491 Other secondary cataract, right eye (principal)

== ENCOUNTER 2017-03-21 07:30 | Emergency (ER) | payer BC ==
[~2017-03-21] VITALS: Ht 167.6 cm; Wt 87.0 kg
[~2017-03-21 07:30] MED LIST changes: -BALANCED SALT SOLN OPHT IRRIG 15 ML BTL ONE; -HYPROMELLOSE 0.3 % OPTH GEL 10 GM (0.34 FL OZ) TUBE ONE; -PHENYLEPHRINE HCL 2.5% OPTH SOLN 2 ML BTL ONE; -PRED20 PO; -PROPARACAINE HCL 0.5% OPHT SOLN 15 ML BTL ONE; -TROPICAMIDE 1% OPHT SOLN 15 ML BTL ONE
[2017-03-21 07:31] VITALS: BP 136/78; PULSE 94; RESP 24; TEMP 98.3; O2SAT 95
--- NOTE | 2017-03-21 07:56 | PD ---
HPI Chief Complaint: Cold / Flu Symptoms Time Seen by Provider: 07:45 Travel History International Travel<30 days: No Contact w/Intl Traveler<30days: No Traveled to known affect area: No History of Present Illness HPI This is a 56-year-old female who has a history of HIV with a CD4 count of about 500 who presents to the emergency department with 1 month of nonproductive cough described as dry, constant, associated with some shortness of breath and difficulty speaking full sentences, with no fevers or chills. She does say she feels a little bit nauseous and has less appetite than normal. She has smoked about a half pack of cigarettes per day for about 30 years. She denies any sore throat or rhinorrhea. PFSH Past Medical History Anemia: Yes Arthritis: Yes Asthma: Yes Anxiety: Yes Depression: Yes Heart Rhythm Problems: No High Cholesterol: Yes Congestive Heart Failure: No COPD: No Diabetes: No Diminished Hearing: No Diverticulitis: Yes GERD: Yes Genitourinary: No Hepatitis: Yes (B AND C) Hypertension: Yes Immune Disorder: Yes (HIV +) Kidney Stones: Yes Reproductive: No Respiratory: Yes Integumentary: Yes (GENITAL HERPES) Immunizations Current: No Seizures: Yes Sleep Apnea: No Thyroid Disease: No Tetanus Vaccination: < 5 Years ?: Not Menopausal: Yes : 8 Para: 3 Miscarriage: 1 : 4 Tubal Ligation: Yes Past Surgical History Appendectomy: Yes Cholecystectomy: Yes Eye Surgery: Yes (BILAT CATARACT) Hysterectomy: Yes Other Surgery: Yes Social History Alcohol Use: No Tobacco Use: Yes (3-4 CIGARETTES A DAY) Substance Use: No Allergies-Medications (Allergen,Severity, Reaction): Coded Allergies: Penicillin (Verified Allergy, Severe, HIVES, 01/15/17) Reported Meds & Prescriptions Reported Meds & Active Scripts Active Ditropan (Oxybutynin Chloride) 5 Mg Tab 5 Mg PO Q12HR Atorvastatin (Atorvastatin Calcium) 10 Mg Tab 10 Mg PO DAILY Lisinopril 10 Mg Tab 10 Mg PO DAILY Tylenol-Codeine #3 (Acetaminophen-Codeine) 300-30 mg Tab 1-2 Tab PO Q6H PRN Flexeril (Cyclobenzaprine HCl) 10 Mg Tab 10 Mg PO TID Mobic (Meloxicam) 15 Mg Tab 15 Mg PO DAILY Robaxin (Methocarbamol) 750 Mg Tab 750 Mg PO Q8HR PRN Reported Benzonatate 200 Mg Cap 1 Cap PO Q8HR PRN Omeprazole 20 Mg Cap 1 Cap PO DAILY Proair Hfa 8.5 GM Inh (Albuterol Sulfate) 90 Mcg/Act Aer 2 Puff INH Q6H PRN 108 mcg/actuation Nystatin Liq 100,000 unit/ml Susp 5 Ml SWISH-SWAL DAILY Levetiracetam ER 24 HR (Levetiracetam) 750 Mg Jojo 1 Tab PO Q12HR Mobic (Meloxicam) 15 Mg Tab 15 Mg PO DAILY Review of Systems Except as stated in HPI: all other systems reviewed are Neg Physical Exam Narrative GENERAL:Well appearing, no acute distress SKIN: Focused skin assessment warm and dry. HEAD: Atraumatic. Normocephalic. EYES: Pupils equal and round. No injection or drainage. ENT: Moist mucous membranes NECK: Trachea midline. CARDIOVASCULAR: Regular rate and rhythm. No murmur appreciated. RESPIRATORY: Diffuse expiratory wheezing heard most with coughing, speaking full sentences GASTROINTESTINAL: Abdomen soft, non-tender, nondistended. MUSCULOSKELETAL: No obvious deformities. NEUROLOGICAL: Awake and alert. No obvious cranial nerve deficits. Moving all extremities. PSYCHIATRIC: Appropriate mood and affect; insight and judgment normal. Data Data Last Documented VS Vital Signs Date Time Temp Pulse Resp B/P Pulse Ox O2 Delivery O2 Flow Rate FiO2 03/21/17 07:57 94 Room Air 03/21/17 07:31 98.3 94 24 136/78 Orders Complete Blood Count With Diff (03/21/17 07:53) Basic Metabolic Panel (Bmp) (03/21/17 07:53) ^ Insert Iv (03/21/17 07:53) Methylprednisolone So Succ Inj (Solumedr (03/21/17 08:00) Ecg Monitoring (03/21/17 07:53) Iv Access Insert/Monitor (03/21/17 07:53) Oximetry (03/21/17 07:53) Oxygen Administration (03/21/17 07:53) Albuterol-Ipratropium Neb (Duoneb Neb) (03/21/17 08:00) Sodium Chloride 0.9% Flush (Ns Flush) (03/21/17 08:00) Chest, Pa & Lat (03/21/17 ) Labs Laboratory Tests Test 03/21/17 08:12 White Blood Count 4.2 TH/MM3 Red Blood Count 5.21 MIL/MM3 Hemoglobin 15.6 GM/DL Hematocrit 45.3 % Mean Corpuscular Volume 86.9 FL Mean Corpuscular Hemoglobin 29.9 PG Mean Corpuscular Hemoglobin 34.4 % Concent Red Cell Distribution Width 13.5 % Platelet Count 192 TH/MM3 Mean Platelet Volume 9.0 FL Neutrophils (%) (Auto) 57.1 % Lymphocytes (%) (Auto) 22.1 % Monocytes (%) (Auto) 19.2 % Eosinophils (%) (Auto) 0.8 % Basophils (%) (Auto) 0.8 % Neutrophils # (Auto) 2.4 TH/MM3 Lymphocytes # (Auto) 0.9 TH/MM3 Monocytes # (Auto) 0.8 TH/MM3 Eosinophils # (Auto) 0.0 TH/MM3 Basophils # (Auto) 0.0 TH/MM3 CBC Comment DIFF FINAL Differential Comment Sodium Level 136 MEQ/L Potassium Level 3.8 MEQ/L Chloride Level 106 MEQ/L Carbon Dioxide Level 22.7 MEQ/L Anion Gap 7 MEQ/L Blood Urea Nitrogen 16 MG/DL Creatinine 0.98 MG/DL Estimat Glomerular Filtration 58 ML/MIN Rate Random Glucose 113 MG/DL Calcium Level 8.6 MG/DL MDM Medical Decision Making Medical Screen Exam Complete: Yes Emergency Medical Condition: Yes Interpretation(s) Afebrile, mild tachycardia, no hypoxia No leukocytosis Electrolytes are reassuring Chest x-ray: No acute process Differential Diagnosis Bronchitis, COPD exacerbation, pneumonia, congestive heart failure Narrative Course This is a 56-year-old female who presents to the emergency department with nonproductive cough. She has a history of HIV and a long smoking history. She is diffusely wheezing on exam. I suspect she has undiagnosed COPD. She was placed on a monitor and an IV was established. She was given IV steroids. Labs are obtained which were reassuring. Chest x-ray demonstrates no infiltrate or pulmonary edema. Patient was improved after bronchodilator treatments. I think she can be discharged home Diagnosis Primary Impression: COPD exacerbation Patient Instructions: General Instructions Additional Instructions: If you develop severe shortness of breath, chest pain, or difficulty breathing return to the emergency department. Use albuterol every 4 hours for the next 2 days. Then use as needed for wheezing. Complete your course of steroids. Follow up with your primary care physician in 2-3 days if your symptoms have not improved. Med/Other Pt SpecificInfo: Prescription(s) given Scripts Albuterol 8.5 GM Inh (Proair Hfa 8.5 GM Inh)90 Mcg/Act Aer2 Puff INH Q4-6H PRN ( SHORTNESS OF BREATH) #1 INHALER 108 mcg/actuation Prov:Jazmin Keith MD 03/21/17 Prednisone 20 Mg Tab40 Mg PO DAILY 4 Days Prov:Jazmin Keith MD 03/21/17 Disposition: 01 DISCHARGE HOME Condition: Stable Jazmin Keith MD Mar 21, 2017 07:56
[2017-03-21 07:57] VITALS: O2SAT 94
[2017-03-21] MEDS: RESP: ALBUTEROL 2.5 MG/IPRATROPIUM 0.5 MG NEB (SCH) INH (07:59)
[2017-03-21] MEDS ORDERED: methylPREDNISolone SOD SUCC 125 MG/2 ML VIAL IV PUSH ONE (08:00)
[2017-03-21] MEDS ORDERED: SODIUM CHLORIDE 0.9% FLUSH 10 ML FLUSH IVF PRN (08:00)
--- NOTE | 2017-03-21 08:15 | RADRPT ---
EXAM DATE/TIME: 03/21/2017 08:02 [facility] COMPARISON: CHEST PA & LAT, December 03, 2013, 11:37. INDICATIONS : Cough and congestion for one month. MEDICAL HISTORY : Hypertension. Hepatitis C. HIV. Renal disease. SURGICAL HISTORY : None. ENCOUNTER: Initial ACUITY: 1 month PAIN SCORE: 0/10 LOCATION: Bilateral chest FINDINGS: There is linear scarring in the lingula again noted. The lungs are otherwise clear. Heart size upper limits normal. Osseous structures are intact. CONCLUSION: No acute disease. Adonis Harris MD on March 21, 2017 at 8:13 Board Certified Radiologist. This report was verified electronically.
[2017-03-21 08:25] LABS: AUTOMATED NEUTROPHIL # 2.4 TH/MM3 (1.8-7.7); BASOPHIL % 0.8 % (0.0-2.0); EOSINOPHIL % 0.8 % (0.0-4.0); HEMATOCRIT 45.3 % (35.0-46.0); HEMO FLAGS DIFF FINAL; LYMPH % 22.1 % (9.0-44.0); LYMPHOCYTE # 0.9 TH/MM3 (1.0-4.8); MEAN CELL VOLUME 86.9 FL (80.0-100.0); MEAN CORPUSCULAR HEMOGLOBIN 29.9 PG (27.0-34.0); MEAN CORPUSCULAR HGB CONC 34.4 % (32.0-36.0); MONO % 19.2 % (0.0-8.0); NEUT % 57.1 % (16.0-70.0); PLATELET COUNT 192 TH/MM3 (150-450); RED BLOOD COUNT 5.21 MIL/MM3 (4.00-5.30); RED CELL DISTRIBUTION WIDTH 13.5 % (11.6-17.2); WHITE BLOOD COUNT 4.2 TH/MM3 (4.0-11.0)
[2017-03-21 08:48] LABS: BICARBONATE 22.7 MEQ/L (21.0-32.0); POTASSIUM 3.8 MEQ/L (3.5-5.1)
[2017-03-21] MEDS ORDERED: PRED20 PO (08:57)
[2017-03-21] MEDS ORDERED: ALBUAER3 INH (08:57)
[2017-04-06] MEDS ORDERED: LISI10TA3 PO (08:27)
[2017-04-06] MEDS ORDERED: ATOR10TA15 PO (08:28)
== END 2017-03-21 09:26 | disposition home or self-care (01) ==
LOC: NEPE 07:30
DX: J44.1 Chronic obstructive pulmonary disease with (acute) exacerbation (principal); J45.909 Unspecified asthma, uncomplicated; F17.210 Nicotine dependence, cigarettes, uncomplicated; B20 Human immunodeficiency virus [HIV] disease; I10 Essential (primary) hypertension
CPT/HCPCS: 71020; 80048; 85025; 94640; 94664; 96374; 99285; J2930

== ENCOUNTER 2017-05-08 08:44 | Emergency (ER) | payer BC ==
[~2017-05-08] VITALS: Ht 167.6 cm; Wt 70.0 kg
[~2017-05-08 08:44] MED LIST changes: +PRED20 PO
[2017-05-08] MEDS ORDERED: ABAC1TAB3 PO (09:03)
[2017-05-08] MEDS ORDERED: ONDANSETRON HCL 4 MG/2 ML VIAL IVP ONE (09:15)
[2017-05-08] MEDS ORDERED: MORPHINE SULFATE 4 MG/ML INJ IV ONE (09:15)
[2017-05-08] MEDS ORDERED: SODIUM CHLORIDE 0.9% FLUSH 10 ML FLUSH IVF PRN (09:15)
--- NOTE | 2017-05-08 09:20 | PD ---
HPI Chief Complaint: Fall Time Seen by Provider: 09:09 Travel History International Travel<30 days: No Contact w/Intl Traveler<30days: No History of Present Illness HPI 56 y/o female presents after she fell this morning. She states she hit her head and doesn't think she blacked out but she's not sure. She is having most of her pain to her right lower ribs. Pain is worse with movement or deep breaths. She is also having pain to her left pinky toe area. She is not on any specific blood thinners. Quality pain is sharp. Severity is severe. She states the fall was after she slipped. She denies other modifying factors. PFSH Past Medical History Anemia: Yes Arthritis: Yes Asthma: Yes Anxiety: Yes Depression: Yes Heart Rhythm Problems: No High Cholesterol: Yes Congestive Heart Failure: No COPD: No Diabetes: No Diminished Hearing: No Diverticulitis: Yes GERD: Yes Genitourinary: No Hepatitis: Yes (B AND C) Hypertension: Yes Immune Disorder: Yes (HIV +) Kidney Stones: Yes Reproductive: No Respiratory: Yes Integumentary: Yes (GENITAL HERPES) Immunizations Current: No Seizures: Yes Sleep Apnea: No Thyroid Disease: No ?: Not Menopausal: Yes : 8 Para: 3 Miscarriage: 1 : 4 Tubal Ligation: Yes Past Surgical History Appendectomy: Yes Cholecystectomy: Yes Eye Surgery: Yes (BILAT CATARACT) Hysterectomy: Yes Other Surgery: Yes Social History Alcohol Use: No Tobacco Use: Yes Substance Use: No Allergies-Medications (Allergen,Severity, Reaction): Coded Allergies: penicillin G (Unverified Allergy, Severe, HIVES, 05/04/17) Reported Meds & Prescriptions Reported Meds & Active Scripts Active Lortab (Hydrocodone-Acetaminophen) 5-325 Mg Tab 1 Tab PO Q6H PRN Lisinopril 10 Mg Tab 10 Mg PO DAILY must be seen in office prior to next refill/annual fasting labs Atorvastatin (Atorvastatin Calcium) 10 Mg Tab 10 Mg PO DAILY Flexeril (Cyclobenzaprine HCl) 10 Mg Tab 10 Mg PO TID Reported Triumeq (Jolrelvv-Aigqgtxdrdjq-Vspvjkgwuo) 600-50-300 Mg Tab 1 Tab PO DAILY Hazardous agent; use appropriate precautions for handling & disposal. Benzonatate 200 Mg Cap 1 Cap PO Q8HR PRN Omeprazole 20 Mg Cap 1 Cap PO DAILY Proair Hfa 8.5 GM Inh (Albuterol Sulfate) 90 Mcg/Act Aer 2 Puff INH Q6H PRN 108 mcg/actuation Nystatin Liq 100,000 unit/ml Susp 5 Ml SWISH-SWAL DAILY Mobic (Meloxicam) 15 Mg Tab 15 Mg PO DAILY Review of Systems Except as stated in HPI: all other systems reviewed are Neg Physical Exam Narrative General: 56 y/o patient in no apparent distress Skin: Warm and dry Eyes: Pupils equal ENT: no septal hematoma NECK: no pain with palpation in midline, nexus criteria negative Cardiovascular: Regular rate and rhythm Respiratory: Normal respiratory effort noted, clear to auscultation bilaterally Abdomen: soft, tender right upper quadrant, nondistended Back: No step-offs, midline spine nontender with palpation Extremities: Pain with palpation of left fifth digit and lateral left foot, no lacerations over, neurovascularly intact, no pain with palpation of other joints Neuro: awake, alert, sensation and motor grossly intact Chest wall: Tender to right mid lower ribs Data Data Last Documented VS Vital Signs Date Time Temp Pulse Resp B/P Pulse Ox O2 Delivery O2 Flow Rate FiO2 05/08/17 09:01 Room Air Orders Complete Blood Count With Diff (05/08/17 09:10) Prothrombin Time / Inr (Pt) (05/08/17 09:10) Act Partial Throm Time (Ptt) (05/08/17 09:10) Chest, Single Ap (05/08/17 09:10) Ct Brain W/O Iv Contrast(Rout) (05/08/17 09:10) Ct Abd/Pel W Iv Contrast(Rout) (05/08/17 09:10) Iv Access Insert/Monitor (05/08/17 09:10) Ecg Monitoring (05/08/17 09:10) Oximetry (05/08/17 09:10) Morphine Inj (Morphine Inj) (05/08/17 09:15) Ondansetron Inj (Zofran Inj) (05/08/17 09:15) Sodium Chloride 0.9% Flush (Ns Flush) (05/08/17 09:15) Comprehensive Metabolic Panel (05/08/17 09:10) Foot, Complete ([id number]) (05/08/17 ) Iohexol 350 Inj (Omnipaque 350 Inj) (05/08/17 11:09) Resp Incentive Spirometry (05/08/17 ) Labs Laboratory Tests Test 05/08/17 09:20 White Blood Count 5.5 TH/MM3 Red Blood Count 4.91 MIL/MM3 Hemoglobin 14.8 GM/DL Hematocrit 43.6 % Mean Corpuscular Volume 88.7 FL Mean Corpuscular Hemoglobin 30.1 PG Mean Corpuscular Hemoglobin 33.9 % Concent Red Cell Distribution Width 15.1 % Platelet Count 248 TH/MM3 Mean Platelet Volume 8.4 FL Neutrophils (%) (Auto) 52.5 % Lymphocytes (%) (Auto) 33.4 % Monocytes (%) (Auto) 12.0 % Eosinophils (%) (Auto) 1.7 % Basophils (%) (Auto) 0.4 % Neutrophils # (Auto) 2.9 TH/MM3 Lymphocytes # (Auto) 1.8 TH/MM3 Monocytes # (Auto) 0.7 TH/MM3 Eosinophils # (Auto) 0.1 TH/MM3 Basophils # (Auto) 0.0 TH/MM3 CBC Comment DIFF FINAL Differential Comment Prothrombin Time 11.2 SEC Prothromb Time International 1.0 RATIO Ratio Activated Partial 26.5 SEC Thromboplast Time Sodium Level 137 MEQ/L Potassium Level 3.7 MEQ/L Chloride Level 107 MEQ/L Carbon Dioxide Level 21.6 MEQ/L Anion Gap 8 MEQ/L Blood Urea Nitrogen 16 MG/DL Creatinine 0.90 MG/DL Estimat Glomerular Filtration 65 ML/MIN Rate Random Glucose 102 MG/DL Calcium Level 9.0 MG/DL Total Bilirubin 0.5 MG/DL Aspartate Amino Transf 13 U/L (AST/SGOT) Alanine Aminotransferase 21 U/L (ALT/SGPT) Alkaline Phosphatase 105 U/L Total Protein 7.6 GM/DL Albumin 4.1 GM/DL MDM Medical Decision Making Medical Screen Exam Complete: Yes Emergency Medical Condition: Yes Medical Record Reviewed: Yes (past history confirmed) Interpretation(s) CBC & BMP Diagram 05/08/17 09:20 Last [address] 05/08/17 0910 Signed Impressions: Service Date/Time: Monday, May 08, 2017 10:57 - CONCLUSION: No acute intracranial abnormality. Kilo Pritchard MD Chest X-Ray 05/08/17 0910 Signed Impressions: Service Date/Time: Monday, May 08, 2017 09:21 - CONCLUSION: Left basilar scarring. Kilo Pritchard MD Abdomen/Pelvis CT 05/08/17 0910 Signed Impressions: Service Date/Time: Monday, May 08, 2017 11:01 - CONCLUSION: 1. Diverticulosis without diverticulitis. 2. No abdominal visceral injury. Kilo Pritchard MD Foot X-Ray 05/08/17 0000 Signed Impressions: Service Date/Time: Monday, May 08, 2017 09:22 - CONCLUSION: Soft tissue swelling without fracture. Kilo Pritchard MD Discussed with radiologist and area that I am seeing is possibly a nondisplaced small right seventh rib fracture-given clinical exam Will treat as if fracture with incentive spirometry and pain control Differential Diagnosis Fracture, pneumothorax, liver laceration, strain Narrative Course Will check blood work and trauma imaging and dose with morphine and reevaluate Patient updated, Patient denies any new complaints and states that they are feeling better. Patient happy with care, all questions answered. Patient knows that follow up is incumbent on them and to return to the emergency room immediately if new or worsening symptoms develop. Patient given strict return precautions, vitals reviewed and are normal, agrees to further workup as an outpatient. Diagnosis Primary Impression: Right rib fracture Qualified Code: S22.31XA - Closed fracture of one rib of right side, initial encounter Patient Instructions: General Instructions Additional Instructions: Follow with primary Wednesday, return as needed, use incentive spirometer every hour while awake, take pain medication as needed for pain but do not take while driving Med/Other Pt SpecificInfo: Prescription(s) given Scripts Hydrocodone-Acetaminophen (Lortab)5-325 Mg Tab1 Tab PO Q6H PRN (PAIN) #15 TAB Prov:Maria Guadalupe Martinez MD 05/08/17 Disposition: 01 DISCHARGE HOME Condition: Stable Maria Guadalupe Martinez MD May 08, 2017 09:20
--- NOTE | 2017-05-08 09:33 | RADRPT ---
EXAM DATE/TIME: 05/08/2017 09:22 [facility] COMPARISON: No previous studies available for comparison. INDICATIONS : Left foot pain after fall yesterday. MEDICAL HISTORY : None. SURGICAL HISTORY : None. ENCOUNTER: Initial ACUITY: 2 days PAIN SCORE: 5/10 LOCATION: Left foot. FINDINGS: Three view examination of the left foot demonstrates soft tissue swelling laterally adjacent to the f ifth digit. No fracture. The tarsal bones appear intact. The interphalangeal and metatarsophalange al joints are intact. The calcaneus is intact. Bony mineralization is normal. CONCLUSION: Soft tissue swelling without fracture. Kilo Pritchard MD on May 08, 2017 at 9:31 Board Certified Radiologist. This report was verified electronically.
--- NOTE | 2017-05-08 09:33 | RADRPT ---
EXAM DATE/TIME: 05/08/2017 09:21 [facility] COMPARISON: CHEST SINGLE AP, October 11, 2016, 8:19. INDICATIONS : Right sided rib pain after fall yesterday. Pain right under right breast. MEDICAL HISTORY : Venous insufficiency. Hypertension. Hepatitis C. HIV. Renal disease. SURGICAL HISTORY : None. ENCOUNTER: Initial ACUITY: 2 days PAIN SCORE: 10/10 LOCATION: Bilateral chest FINDINGS: A single view of the chest demonstrates minimal left basilar scarring. Right lung clear. Heart normal in size The cardiomediastinal contours are unremarkable. Osseous structures are intact. No pneumoth orax. CONCLUSION: Left basilar scarring. Kilo Pritchard MD on May 08, 2017 at 9:30 Board Certified Radiologist. This report was verified electronically.
[2017-05-08 09:47] LABS: AUTOMATED NEUTROPHIL # 2.9 TH/MM3 (1.8-7.7); BASOPHIL % 0.4 % (0.0-2.0); EOSINOPHIL # 0.1 TH/MM3 (0-0.4); EOSINOPHIL % 1.7 % (0.0-4.0); HEMATOCRIT 43.6 % (35.0-46.0); HEMO FLAGS DIFF FINAL; LYMPH % 33.4 % (9.0-44.0); LYMPHOCYTE # 1.8 TH/MM3 (1.0-4.8); MEAN CELL VOLUME 88.7 FL (80.0-100.0); MEAN CORPUSCULAR HEMOGLOBIN 30.1 PG (27.0-34.0); MEAN CORPUSCULAR HGB CONC 33.9 % (32.0-36.0); NEUT % 52.5 % (16.0-70.0); PLATELET COUNT 248 TH/MM3 (150-450); RED BLOOD COUNT 4.91 MIL/MM3 (4.00-5.30); RED CELL DISTRIBUTION WIDTH 15.1 % (11.6-17.2); WHITE BLOOD COUNT 5.5 TH/MM3 (4.0-11.0)
[2017-05-08 09:54] LABS: APTT (PATIENT) 26.5 SEC (24.3-30.1); PROTHROMBIN TIME - PATIENT 11.2 SEC (9.8-11.6)
[2017-05-08 10:02] LABS: ALT (GPT) 21 U/L (10-53); ANION GAP 8 MEQ/L (5-15); AST (GOT) 13 U/L (15-37); BICARBONATE 21.6 MEQ/L (21.0-32.0); CHLORIDE 107 MEQ/L (98-107); GLOMERULAR FILTRATION RATE 65 ML/MIN (>89); POTASSIUM 3.7 MEQ/L (3.5-5.1); SODIUM (NA) 137 MEQ/L (136-145)
[2017-05-08 10:05] LABS: ALKALINE PHOSPHATASE 105 U/L (45-117); BLOOD UREA NITROGEN 16 MG/DL (7-18); TOTAL BILIRUBIN ADULT 0.5 MG/DL (0.2-1.0)
[2017-05-08] MEDS ORDERED: IOHEXOL 350 MG/ML 10 ML VIAL (for RAD DIAG) IV ONE (11:09)
--- NOTE | 2017-05-08 11:22 | RADRPT ---
EXAM DATE/TIME: 05/08/2017 10:57 [facility] COMPARISON: CT BRAIN W/O CONTRAST, August 05, 2016, 17:51. INDICATIONS : Trauma, fall onto head today. RADIATION DOSE: 51.01 CTDIvol (mGy) MEDICAL HISTORY : HIV. Hypertension. Hepatitis C. SURGICAL HISTORY : Hysterectomy. ENCOUNTER: Initial ACUITY: 1 day PAIN SCALE: 3/10 LOCATION: Bilateral head TECHNIQUE: Multiple contiguous axial images were obtained of the head. Using automated exposure control and adj ustment of the mA and/or kV according to patient size, radiation dose was kept as low as reasonably a chievable to obtain optimal diagnostic quality images. DICOM format image data is available electro nically for review and comparison. FINDINGS: CEREBRUM: The ventricles are normal for age. No evidence of midline shift, mass lesion, hemorrhage or acute in farction. No extra-axial fluid collections are seen. POSTERIOR FOSSA: The cerebellum and brainstem are intact. The 4th ventricle is midline. The cerebellopontine angle i s unremarkable. EXTRACRANIAL: The visualized portion of the orbits is intact. SKULL: The calvaria is intact. No evidence of skull fracture. CONCLUSION: No acute intracranial abnormality. Kilo Pritchard MD on May 08, 2017 at 11:19 Board Certified Radiologist. This report was verified electronically.
--- NOTE | 2017-05-08 11:28 | RADRPT ---
EXAM DATE/TIME: 05/08/2017 11:01 [facility] COMPARISON: No previous studies available for comparison. INDICATIONS : Trauma, fall today, diffuse abdomen pain. IV CONTRAST: 97 cc Omnipaque 350 (iohexol) IV ORAL CONTRAST: No oral contrast ingested. RADIATION DOSE: 14.65 CTDIvol (mGy) MEDICAL HISTORY : Renal calculi. HIV. Diverticulitis. SURGICAL HISTORY : Hysterectomy. Appendectomy.Cholecystectomy. ENCOUNTER: Initial ACUITY: 1 day PAIN SCALE: 5/10 LOCATION: Bilateral abdomen TECHNIQUE: Volumetric scanning of the abdomen and pelvis was performed. Using automated exposure control and ad justment of the mA and/or kV according to patient size, radiation dose was kept as low as reasonably achievable to obtain optimal diagnostic quality images. DICOM format image data is available electro nically for review and comparison. FINDINGS: LOWER LUNGS: The visualized lower lungs are clear. LIVER: Homogeneous density without lesion. There is no dilation of the biliary tree. Cholecystectomy clips. SPLEEN: Normal size without lesion. PANCREAS: Within normal limits. KIDNEYS: Normal in size and shape. There is no mass, stone or hydronephrosis. ADRENAL GLANDS: Within normal limits. VASCULAR: There is no aortic aneurysm. BOWEL/MESENTERY: Diverticulosis of the colon. Nondistention of the transverse colon.. There is no free intraperitonea l air or fluid. ABDOMINAL WALL: Within normal limits. RETROPERITONEUM: There is no lymphadenopathy. BLADDER: No wall thickening or mass. REPRODUCTIVE: Uterus absent. INGUINAL: There is no lymphadenopathy or hernia. MUSCULOSKELETAL: Within normal limits for patient age. CONCLUSION: 1. Diverticulosis without diverticulitis. 2. No abdominal visceral injury. Kilo Pritchard MD on May 08, 2017 at 11:23 Board Certified Radiologist. This report was verified electronically.
[2017-05-08] MEDS ORDERED: HYDR-3533 PO (11:47)
[2017-06-08] MEDS ORDERED: LISI10TA3 PO (14:54)
== END 2017-05-08 12:10 | disposition home or self-care (01) ==
LOC: NEPC 08:44
DX: S22.31XA Fracture of one rib, right side, initial encounter for closed fracture (principal); M79.675 Pain in left toe(s); I10 Essential (primary) hypertension; E78.00 Pure hypercholesterolemia, unspecified; W01.0XXA Fall on same level from slipping, tripping and stumbling without subsequent striking against object, initial encounter; Z72.0 Tobacco use; Z21 Asymptomatic human immunodeficiency virus [HIV] infection status; Z86.2 Personal history of diseases of the blood and blood-forming organs and certain disorders involving the immune mechanism; Z87.39 Personal history of other diseases of the musculoskeletal system and connective tissue; Z87.09 Personal history of other diseases of the respiratory system; Z86.59 Personal history of other mental and behavioral disorders; Z87.19 Personal history of other diseases of the digestive system; Z86.19 Personal history of other infectious and parasitic diseases; Z87.442 Personal history of urinary calculi; Z87.2 Personal history of diseases of the skin and subcutaneous tissue; Z86.69 Personal history of other diseases of the nervous system and sense organs
CPT/HCPCS: 70450; 71010; 73630; 74177; 80053; 85025; 85610; 85730; 94150; 96374; 96375; 99285; J2270; J2405; Q9967

== ENCOUNTER 2018-02-20 06:55 | Emergency (ER) | payer BC, MEDICAID ==
[~2018-02-20] VITALS: Ht 167.6 cm; Wt 95.0 kg
[~2018-02-20 06:55] MED LIST changes: +ABAC1TAB3 PO; -ATOR10TA15 PO; +ATOR20TA15 PO; -BENZ1CAP34 PO; +BENZ1CAP51 PO; +BUSP5TAB PO; +CHOL1CAP34 PO; +CYCL10TA PO; -CYCL1TAB29 PO; +FURO1TAB62 PO; +KEPP750T PO; -LEVE750T11 PO; -OXYB5TAB10 PO; -PRED20 PO; -ROBA750T PO; -TYLETAB34 PO
[2018-02-20 07:09] VITALS: BP 129/71; PULSE 97; RESP 16; TEMP 98.4; O2SAT 97
[2018-02-20] MEDS ORDERED: ACETAMINOPHEN/HYDROcodone 325 MG/5 MG TAB PO ONE (07:30)
[2018-02-20 07:40] VITALS: BP 129/71; PULSE 84; RESP 16; TEMP 98.4; O2SAT 97
--- NOTE | 2018-02-20 08:05 | RADRPT ---
EXAM DATE: 02/20/2018 8:00 AM EDT AGE/SEX: 57 years / Female INDICATIONS: Left lateral ankle pain, fell CLINICAL DATA: This is the patient's initial encounter. Patient reports that signs and symptoms have been present for 2 days and indicates a pain score of 5/10. MEDICAL/SURGICAL HISTORY: . Renal calculi. HIV. Diverticulitis. SURGICAL HISTORY : Hysterectomy . Appendectomy. Cholecystectomy . Hysterectomy. Appendectomy. Cholecystectomy [place] [facility] [place][id number][place] 12/04/2016. . FINDINGS: Bony structures are intact and in normal alignment. Joints are intact without dislocation or signifi cant arthropathy. Osseous density is normal. Circumferential soft tissue prominence adjacent to the medial and lateral ankle, stable from prior exam. No radiopaque foreign bodies seen. CONCLUSION: No evidence of fracture. Electronically signed by: Erika Wilder MD 02/20/2018 8:04 AM EDT
--- NOTE | 2018-02-20 08:06 | RADRPT ---
EXAM DATE: 02/20/2018 8:03 AM EDT AGE/SEX: 57 years / Female INDICATIONS: Fell yesterday. Neck pain. CLINICAL DATA: This is the patient's initial encounter. Patient reports that signs and symptoms have been present for 2 days and indicates a pain score of 2/10. MEDICAL/SURGICAL HISTORY: Chronic obstructive pulmonary disease. Appendectomy. Hysterectomy. Chol ecystectomy. RADIATION DOSE: 56.35 CTDI (mGy) COMPARISON: [facility] [place], CT BRAIN W/O CONTRAST, 05/08/2017. [facility] [place], CT BRAIN W/O CONTRAST, 08/05/2016. . TECHNIQUE: CT of the head without contrast. Using automated exposure control and adjustment of the mA and/or kV according to patient size, radiation dose was kept as low as reasonably achievable to ob tain optimal diagnostic quality images. FINDINGS: Cerebrum: The ventricles are normal for age. No evidence of midline shift, mass lesion, hemorrhage or acute infarction. No extraaxial fluid collections are seen. Posterior Fossa: The cerebellum and brainstem are intact. The 4th ventricle is midline. The cerebe llopontine angle is unremarkable. Extracranial: The visualized portion of the orbits is intact. Mild gross focal thickening identified within the right ethmoid air cells and sphenoid sinus. Skull: The calvaria is intact. No evidence of skull fracture. CONCLUSION: 1. No evidence of injury. Electronically signed by: Erika Wilder MD 02/20/2018 8:05 AM EDT
--- NOTE | 2018-02-20 08:07 | RADRPT ---
EXAM DATE: 02/20/2018 8:03 AM EDT AGE/SEX: 57 years / Female INDICATIONS: Left hip pain, fell CLINICAL DATA: This is the patient's initial encounter. Patient reports that signs and symptoms have been present for 2 days and indicates a pain score of 4/10. MEDICAL/SURGICAL HISTORY: . Renal calculi. HIV. Diverticulitis . Hysterectomy. Appendectomy. C holecystectomy COMPARISON: No prior [facility] exams available for comparison. FINDINGS: Bony structures are intact and in normal alignment. Joints are intact without dislocation or signifi cant arthropathy. Osseous density is normal. Soft tissues are unremarkable. No radiopaque foreign bodies seen. CONCLUSION: Normal exam Electronically signed by: Erika Wilder MD 02/20/2018 8:06 AM EDT
--- NOTE | 2018-02-20 08:09 | PD ---
HPI Chief Complaint: Pain: Acute or Chronic Time Seen by Provider: 07:22 Travel History International Travel<30 days: No Contact w/Intl Traveler<30days: No Traveled to known affect area: No History of Present Illness HPI Patient is a 57 year old female who comes in complaining of pain to her left side after she fell in the shower yesterday. She says she slipped and fell and landed on her left side. She has tried Excedrin without relief of her symptoms. She complains of pain to her left ribs, hip and ankle. She denies hitting her head, but says the shower curtain fell on her head. She has been walking since the incident. She says she couldn't sleep due to the pain. Severity is mild to moderate. PFSH Past Medical History Anemia: Yes Arthritis: Yes Asthma: Yes Autoimmune Disease: Yes (HIV +) Blood Disorders: Yes (HIV+) Anxiety: Yes Depression: Yes Heart Rhythm Problems: No Cardiovascular Problems: Yes (HYPERTENSION) High Cholesterol: Yes Chest Pain: Yes Congestive Heart Failure: No COPD: Yes Diabetes: No (prediabetic) Diminished Hearing: No Diverticulitis: Yes GERD: Yes Genitourinary: No Hepatitis: Yes (B AND C) Hypertension: Yes Immune Disorder: Yes (HIV +) Kidney Stones: Yes Musculoskeletal: Yes Neurologic: Yes Psychiatric: Yes Reproductive: No Respiratory: Yes Integumentary: Yes (GENITAL HERPES) Immunizations Current: No Pneumonia: Yes Seizures: Yes Sleep Apnea: No Thyroid Disease: No ?: Not Menopausal: Yes : 8 Para: 3 Miscarriage: 1 : 4 Tubal Ligation: Yes Past Surgical History Appendectomy: Yes Cholecystectomy: Yes Eye Surgery: Yes (BILAT CATARACT) Hysterectomy: Yes Other Surgery: Yes Social History Alcohol Use: No Tobacco Use: Yes (couple cigs a day) Substance Use: No Allergies-Medications (Allergen,Severity, Reaction): Coded Allergies: penicillin G (Verified Allergy, Severe, HIVES, 02/20/18) Reported Meds & Prescriptions Reported Meds & Active Scripts Active Atorvastatin (Atorvastatin Calcium) 20 Mg Tab 20 Mg PO HS Buspirone (Buspirone HCl) 5 Mg Tab 5 Mg PO BID Lasix (Furosemide) 20 Mg Tab 20 Mg PO DAILY Lisinopril 10 Mg Tab 10 Mg PO DAILY Flexeril (Cyclobenzaprine HCl) 10 Mg Tab 10 Mg PO TID use as little as possible Benzonatate 200 Mg Cap 1 Cap PO Q8HR PRN Omeprazole 20 Mg Cap 1 Cap PO DAILY Proair Hfa 8.5 GM Inh (Albuterol Sulfate) 90 Mcg/Act Aer 2 Puff INH Q6H PRN 108 mcg/actuation Vitamin D3 (Cholecalciferol) 50,000 Unit Cap 50,000 Units PO Q7D Reported Keppra (Levetiracetam) 750 Mg Tab 750 Mg PO BID Triumeq (Ohkddzgp-Biunrljamfcr-Kriimzhvly) 600-50-300 Mg Tab 1 Tab PO DAILY Hazardous agent; use appropriate precautions for handling & disposal. Nystatin Liq 100,000 unit/ml Susp 5 Ml SWISH-SWAL DAILY Mobic (Meloxicam) 15 Mg Tab 15 Mg PO DAILY Review of Systems General / Constitutional: No: Fever, Chills Eyes: No: Blurred Vision HENT: Positive: Neck Pain, No: Headaches Cardiovascular: No: Chest Pain or Discomfort Respiratory: No: Shortness of Breath Gastrointestinal: No: Nausea, Vomiting, Abdominal Pain Musculoskeletal: Positive: Pain Skin: No Rash, No Change in Pigmentation Neurologic: No: Weakness, Dizziness, Sensory Disturbance Physical Exam Narrative GENERAL: Awake and alert, in no acute distress. SKIN: Focused skin assessment warm/dry. No wounds. HEAD: Atraumatic. Normocephalic. EYES: Pupils equal and round. No scleral icterus. EOMI. ENT: Mucous membranes pink and moist. NECK: Trachea midline. No JVD. Tender to palpation of lower C-spine. CARDIOVASCULAR: Regular rate and rhythm. No murmur appreciated. RESPIRATORY: No accessory muscle use. Clear to auscultation. Breath sounds equal bilaterally. MUSCULOSKELETAL: No obvious deformities. No clubbing. No cyanosis. No edema. Tender to palpation of left hip, pain with movement. Tender to palpation of left lateral malleolus. Pedal pulses intact. NEUROLOGICAL: Awake and alert. No obvious cranial nerve deficits. Motor grossly within normal limits. Normal speech. Data Data Last Documented VS Vital Signs Date Time Temp Pulse Resp B/P (MAP) Pulse Ox O2 Delivery O2 Flow Rate FiO2 02/20/18 07:40 98.4 84 16 129/71 (90) 97 Room Air Orders Orders Ct Cerv Spine W/O Contrast (02/20/18 ) Ct Brain W/O Iv Contrast(Rout) (02/20/18 ) Spine, Lumbar Comp W/Obliq (02/20/18 ) Hip, Uni(4+Vws) W Ap Pelvis (02/20/18 ) Ankle, Complete ([id number]) (02/20/18 ) Ribs, Uni (W/Exp Cxr-Min 3vw) (02/20/18 ) Acetamin-Hydrocod 325-5 Mg ([place] 5-325 (02/20/18 07:30) MDM Medical Decision Making Medical Screen Exam Complete: Yes Emergency Medical Condition: Yes Medical Record Reviewed: Yes Differential Diagnosis ankle fracture vs sprain vs rib fracture vs contusion Narrative Course Patient is a 57 year old female who comes in complaining of pain after a slip and fall. Exam shows pain to the ankle and hip and neck. CT head and C-spine performed shows no acute abnormalities. XR of the lumbar spine, ribs, hip and ankle show no acute abnormalities. Given norco for pain. Will discharge with a prescription for a few pain pills. Advised to follow up with a primary care doctor. Advised to return to the ED as needed for any worsening symptoms. Diagnosis Primary Impression: Fall Qualified Codes: W19.XXXA - Unspecified fall, initial encounter Additional Impressions: Hip pain Qualified Codes: M25.552 - Pain in left hip Musculoskeletal strain Patient Instructions: Fall Prevention (ED), General Instructions, Musculoskeletal Pain (ED) Additional Instructions: Take Tylenol or ibuprofen as needed for pain. You can take a tramadol as needed for severe pain. Follow-up with your doctor. Return to the ED as needed for any worsening symptoms. Scripts Tramadol (Tramadol) 50 Mg Tab 50 MG PO Q6H Y for PAIN, #7 TAB 0 Refills Prov: Yanet Wheeler MD 02/20/18 Disposition: 01 DISCHARGE HOME Condition: Stable Yanet Wheeler MD Feb 20, 2018 08:09
--- NOTE | 2018-02-20 08:13 | RADRPT ---
EXAM DATE: 02/20/2018 8:06 AM EDT AGE/SEX: 57 years / Female INDICATIONS: Left lateral rib pain, fell CLINICAL DATA: This is the patient's initial encounter. Patient reports that signs and symptoms have been present for 2 days and indicates a pain score of 5/10. MEDICAL/SURGICAL HISTORY: . Renal calculi. HIV. Diverticulitis Appendectomy. Cholecystectomy. COMPARISON: No prior [facility] exams available for comparison. FINDINGS: There is no evidence of displaced fracture. No destructive lesions or areas of periosteal thickening are seen. Expiratory view of the chest is negative for pneumothorax. The mediastinal structures ar e midline. CONCLUSION: Normal exam. No evidence of rib fracture, pneumothorax or pulmonary contusion. Electronically signed by: Erika Wilder MD 02/20/2018 8:11 AM EDT
--- NOTE | 2018-02-20 08:14 | RADRPT ---
EXAM DATE: 02/20/2018 8:08 AM EDT AGE/SEX: 57 years / Female INDICATIONS: Low back pain, fell CLINICAL DATA: This is the patient's initial encounter. Patient reports that signs and symptoms have been present for 2 days and indicates a pain score of 4/10. MEDICAL/SURGICAL HISTORY: . Renal calculi. HIV. Diverticulitis Appendectomy. Cholecystectomy. COMPARISON: [facility], SPINE LUMBAR COMPLETE W/OBLIQ, 03/03/2011. . FINDINGS: The vertebral bodies are in normal alignment without evidence of compression deformity the disc spac es appear relatively well preserved. Facet degenerative changes are seen at the level of L5/S1, moder ate. Bone density is normal for age. Soft tissues are grossly intact. CONCLUSION: No evidence of fracture. Facet degenerative changes seen at the level of L5/S1. Otherwise negative ex am. Electronically signed by: Erika Wilder MD 02/20/2018 8:13 AM EDT
--- NOTE | 2018-02-20 08:17 | RADRPT ---
EXAM DATE: 02/20/2018 8:06 AM EDT AGE/SEX: 57 years / Female INDICATIONS: Fell yesterday. Neck pain. CLINICAL DATA: This is the patient's initial encounter. Patient reports that signs and symptoms have been present for 2 days and indicates a pain score of 2/10. MEDICAL/SURGICAL HISTORY: Chronic obstructive pulmonary disease. Appendectomy. Cholecystectomy . Hysterectomy. RADIATION DOSE: 23.76 CTDI (mGy) COMPARISON: No prior [place] exams available for comparison. TECHNIQUE: Contiguous axial images were obtained using helical multirow detector technique. The vol umetric data was post-processed with multiplanar reconstruction in oblique axial, sagittal, and coron al planes. Using automated exposure control and adjustment of the mA and/or kV according to patient s ize, radiation dose was kept as low as reasonably achievable to obtain optimal diagnostic quality yessica ges. FINDINGS: Vertebrae: Normal vertebral body height. Alignment: Normal. No subluxation. C2-3: The bony spinal canal is normal in size. No evidence of disc bulge or herniation. The neural foramina are bilaterally patent. C3-4: Left-sided uncovertebral joint hypertrophy with mild left-sided osseous neuroforaminal narrowi ng. Minimal broad-based disc bulge. C4-5: Mild bilateral uncovertebral joint hypertrophy with mild to moderate neural foraminal narrowin g. Minimal disc bulge. C5-6: Left-sided uncovertebral joint hypertrophy and small posterior disc osteophyte complex. C6-7: The bony spinal canal is normal in size. No evidence of disc bulge or herniation. The neural foramina are bilaterally patent. C7-T1: The bony spinal canal is normal in size. No evidence of disc bulge or herniation. The neura l foramina are bilaterally patent. CONCLUSION: 1. No evidence of fracture, dislocation or soft tissue abnormality. Degenerative changes as noted ab ove. No significant spinal canal narrowing. Electronically signed by: Erika Wilder MD 02/20/2018 8:16 AM EDT
[2018-02-20] MEDS ORDERED: TRAM50TA PO (08:29)
== END 2018-02-20 08:57 | disposition home or self-care (01) ==
LOC: NEPE 06:55
DX: M25.552 Pain in left hip (principal); M25.572 Pain in left ankle and joints of left foot; M51.37 Other intervertebral disc degeneration, lumbosacral region
CPT/HCPCS: 70450; 71101; 72110; 72125; 73503; 73610